=== PATIENT | female | born 1985 | race Caucasian/White ===

== ENCOUNTER 2017-11-04 12:14 | Inpatient (IN) | payer OTHER ==
[2017-11-04] VITALS (20 sets, daily range): BP systolic 11–126; BP diastolic 51–73; PULSE 100–141; TEMP 97.7–97.8
[~2017-11-04] VITALS: Ht 162.6 cm; Wt 73.6 kg
[~2017-11-04 12:14] MED LIST: IBU600 MG PO; PERCOCET 325 MG1 TA2 PO
[2017-11-04] MEDS ORDERED: PRENATAL1 TA7 PO (13:32)
[2017-11-04 17:10] LABS: MEAN CELL VOLUME 83 fl (80.0-100.0); MEAN CORPUSCULAR HGB CONC 34 g/dl (33.0-37.0); MEAN PLATELET VOLUME 9.9 fl (7.4-10.4); PLATELET COUNT 231 K/mm3 (130-400); RED BLOOD COUNT 3.53 M/mm3 (4.10-5.30); REDCELL DISTRIBUTION WIDTH-CV 13.4 % (11.5-14.5)
[2017-11-04 17:13] LABS: HEMATOCRIT 29.4 % (37.0-47.0); MEAN CORPUSCULAR HEMOGLOBIN 28 pg (27.0-31.0)
[2017-11-04 17:34] LABS: BAND 33 % (0-10); EOSINOPHIL 1 % (0-4); LYMPHOCYTE 17 % (20.0-51.0); METAMYELOCYTE 1 % (0-0); NEUTROPHILS 38 % (42.0-75.2); PLATELET ESTIMATE NORMAL (NORMAL)
[2017-11-04 17:35] LABS: ROULEAUX 1+
[2017-11-04 17:39] LABS: ALBUMIN 3.1 gm/dL (3.5-5.0); BILIRUBIN,TOTAL 0.1 mg/dL (0.0-1.0); CALCIUM 8.9 mg/dL (8.4-10.2); CREATININE, serum 0.38 mg/dL (0.52-1.25); POTASSIUM 3.6 mmol/L (3.4-5.0); TOTAL PROTEIN 6.7 gm/dL (6.4-8.2)
[2017-11-04 17:50] LABS: THYROID STIMULATING HORMONE 0.907 uIU/mL (0.465-4.680)
[2017-11-05] VITALS (40 sets, daily range): BP systolic 71–109; BP diastolic 40–95; PULSE 69–129; TEMP 97.7–100
[2017-11-05] MEDS ORDERED: MOTRIN 800800 MG/TAB PO (08:31)
[2017-11-05] MEDS ORDERED: PERCOCET 325 MG1 TA2 PO (08:31)
[2017-11-06 04:00] VITALS: BP 81/55; PULSE 83; TEMP 97.4
[2017-11-06 05:23] LABS: RPR (VDRL) Non-reactive (())
[2017-11-06 09:00] VITALS: BP 96/54; PULSE 79; TEMP 97.9
[2017-11-06 09:34] LABS: HEMATOCRIT 28.1 % (37.0-47.0); HEMOGLOBIN 9.4 g/dl (12.5-16.0)
[2017-11-07 08:13] LABS: PT G20210A MUTATION B Negative (Negative)
== END 2017-11-06 15:10 | disposition home or self-care (01) | DRG 775 ==
LOC: LDRO 12:14 → OB 17:01 → LDR 17:01 → OB 11-05 21:20
PROVIDERS: Obstetrics & Gynecology
PROC: 10E0XZZ Delivery of Products of Conception, External Approach (ICD-10-PCS; principal; 2017-11-04)
PROC: 3E0P7VZ Introduction of Hormone into Female Reproductive, Via Natural or Artificial Opening (ICD-10-PCS; 2017-11-04)
PROC: 0HQ9XZZ Repair Perineum Skin, External Approach (ICD-10-PCS; 2017-11-04)
PROC: 10907ZC Drainage of Amniotic Fluid, Therapeutic from Products of Conception, Via Natural or Artificial Opening (ICD-10-PCS; 2017-11-04)
DX: O36.4XX0 Maternal care for intrauterine death, not applicable or unspecified (principal); Z3A.30 30 weeks gestation of pregnancy; Z37.1 Single stillbirth; O70.0 First degree perineal laceration during delivery; O69.1XX0 Labor and delivery complicated by cord around neck, with compression, not applicable or unspecified; O62.2 Other uterine inertia
CPT/HCPCS: J0690; J2210; J2590; J2795; J7120

== ENCOUNTER 2018-07-05 22:46 | Emergency (ER) | payer OTHER ==
[~2018-07-05] VITALS: Ht 160 cm; Wt 70.9 kg
[~2018-07-05 22:46] MED LIST changes: +MOTRIN 800800 MG/TAB PO; +PRENATAL1 TA7 PO
[2018-07-05 22:53] VITALS: TEMP 97.9
[2018-07-05] MEDS ORDERED: PRENATAL PO (23:38)
[2018-07-05 23:42] LABS: COLLECTION METHOD CLEAN CATCH
[2018-07-05 23:48] LABS: PH 7 (5-8); SQUAMOUS EPITHELIAL 0-2 /hpf; URINE APPEARANCE Clear; URINE BACTERIA None Seen /hpf; URINE BILIRUBIN Negative (NEGATIVE); URINE BLOOD Negative (NEGATIVE); URINE COLOR Straw; URINE GLUCOSE Negative (NEGATIVE); URINE KETONE Negative (NEGATIVE); URINE LEUKOCYTE ESTERASE Negative (NEGATIVE); URINE NITRATE Negative (NEGATIVE); URINE PROTEIN(semi-quant) Negative (NEGATIVE); URINE RBC None Seen /hpf; URINE UROBILINOGEN Negative (NEGATIVE)
[2018-07-06 00:35] VITALS: BP 113/72; PULSE 81
== END 2018-07-06 00:38 | disposition home or self-care (01) ==
LOC: COL.ER 22:46
PROVIDERS: Nurse Practitioner
DX: O26.891 Other specified pregnancy related conditions, first trimester (principal); R10.2 Pelvic and perineal pain; Z3A.12 12 weeks gestation of pregnancy; Z87.59 Personal history of other complications of pregnancy, childbirth and the puerperium; Z90.721 Acquired absence of ovaries, unilateral

== ENCOUNTER → 2018-11-06 | Outpatient (CLI) | payer OTHER ==
[~2018-11-06] MED LIST changes: +PRENATAL PO
== END ==
LOC: SUN.DIA
DX: O24.419 Gestational diabetes mellitus in pregnancy, unspecified control (principal)
CPT/HCPCS: G0108

== ENCOUNTER → 2018-11-12 | Outpatient (CLI) | payer OTHER ==
[~2018-11-12] MED LIST changes: +FERROUSAL325 MG PO
== END ==
LOC: SUN.DIA 11:15
DX: O24.419 Gestational diabetes mellitus in pregnancy, unspecified control (principal); Z3A.23 23 weeks gestation of pregnancy
CPT/HCPCS: G0108

== ENCOUNTER 2018-11-13 22:34 | Inpatient (IN) | payer OTHER ==
[~2018-11-13] VITALS: Ht 160 cm; Wt 78.6 kg
[~2018-11-13 22:34] MED LIST changes: -FERROUSAL325 MG PO
--- NOTE | 2018-11-13 22:45 | NUR ---
G2L0 at 31 weeks and 4 days arrives to unit with complaint of decreased movement. Pt states she usually feels baby move 30-40 times while doing kick counts and only felt 8 tonight. Pt with a history of 30 week IUFD. Pt denies contractions, vaginal bleeding, or LOF. Pt oriented to room, call light within reach, bed in low and locked position. EFM and toco explained and applied. Plan of care discussed with patient. Pt verbalized understanding, all questions answered. Vital signs obtained. Admission assessment started.
[2018-11-13 23:00] VITALS: BP 110/70; PULSE 88; TEMP 98.1
[2018-11-13] MEDS ORDERED: FERROUSAL325 MG PO (23:04)
--- NOTE | 2018-11-13 23:30 | NUR ---
Category 1 heart rate tracing obtained. Pt reports feeling baby move. Pt is reassured of well being. Dr. Villa notified, see physician notification.
--- NOTE | 2018-11-13 23:40 | NUR ---
Pt discharged home at this time. Reviewed discharge instructions and return precautions, pt verbalized understanding. Pt seen ambulating off unit with spouse.
== END 2018-11-13 23:40 | disposition home or self-care (01) | DRG 833 ==
LOC: LDRO 22:34 → LDR 22:54
PROVIDERS: ADMIT Obstetrics & Gynecology
DX: O36.8130 Decreased fetal movements, third trimester, not applicable or unspecified (principal); Z3A.31 31 weeks gestation of pregnancy; O09.523 Supervision of elderly multigravida, third trimester; O24.419 Gestational diabetes mellitus in pregnancy, unspecified control

== ENCOUNTER → 2018-12-11 | Outpatient (CLI) | payer OTHER ==
[~2018-12-11] MED LIST changes: +FERROUSAL325 MG PO
== END ==
LOC: SUN.DIA 10:06
DX: O24.419 Gestational diabetes mellitus in pregnancy, unspecified control (principal); Z3A.38 38 weeks gestation of pregnancy
CPT/HCPCS: G0108

== ENCOUNTER 2019-01-06 14:47 | Inpatient (IN) | payer OTHER ==
[~2019-01-06] VITALS: Ht 162.6 cm; Wt 83.2 kg
[2019-01-06 19:10] VITALS: BP 110/68; PULSE 78; TEMP 97.9
--- NOTE | 2019-01-06 21:25 | NUR ---
G2L0. 39-2. Ambulatory to LDR 5 with spouse for scheduled induction. Clean gown on. EFM and TOCO explained and applied. Pt denies having contractions, LOF or vaginal bleeding. Reports good movement. Pt appears very anxious for induction. IV started and labs obtained via IV site. LR bolus infusing without difficulties. Consents and assessment completed. Plan of care explained to pt and who verbalize understanding. Questions answered. Call light within reach. 2220: Pt off monitors to use restroom before cytotec placement. Pt states "she would like 15 minutes in bathroom please." Plan of care explained to pt and .
[2019-01-06] MEDS ORDERED: IRON 27 MG PO (22:04)
[2019-01-06 22:24] LABS: HEMATOCRIT 34.8 % (37.0-47.0); HEMOGLOBIN 11.5 g/dl (12.5-16.0); MEAN CELL VOLUME 83 fl (80.0-100.0); MEAN CORPUSCULAR HEMOGLOBIN 27 pg (27.0-31.0); MEAN CORPUSCULAR HGB CONC 33 g/dl (33.0-37.0); MEAN PLATELET VOLUME 10.8 fl (7.4-10.4); PLATELET COUNT 226 K/mm3 (130-400); REDCELL DISTRIBUTION WIDTH-CV 13.4 % (11.5-14.5)
[2019-01-06 22:30] VITALS: BP 89/55; PULSE 81
--- NOTE | 2019-01-06 22:50 | NUR ---
Pt returned from bathroom. SVE FT/50/-3, pt did not tolerate SVE well. Encouraged pt to relax and breathing techniques. Cytotec placed per protocol. Pt repositioned to LL and pericare provided. Plan of care explained to pt and who verbalize understanding.
[2019-01-06 22:53] LABS: BAND 10 % (0-10); BASOPHIL 2 % (0-2); EOSINOPHIL 2 % (0-4); LYMPHOCYTE 25 % (20.0-51.0); METAMYELOCYTE 1 % (0-0); NEUTROPHILS 50 % (42.0-75.2); PLATELET ESTIMATE NORMAL (NORMAL)
[2019-01-06 23:00] VITALS: BP 122/54; PULSE 75
[2019-01-06 23:30] VITALS: BP 86/49; PULSE 71
[2019-01-07] VITALS (46 sets, daily range): BP systolic 80–129; BP diastolic 45–79; PULSE 62–107; TEMP 97.6–99
--- NOTE | 2019-01-07 03:00 | NUR ---
Pt called out crying stating she was hurting. SVE 280/-3 per Carmelita SOTO. Plan of care explained to pt. Pt states she does not want an epidural at this time. 0318: Pt called out stating she would like an epidural at this time. LR bolus and pen G started at this time. Pt requesting to use restroom and monitors removed. HA Torres notified of epidural. [id number]: Pt sitting on EOB. Difficulty tracing FHR strip. RN remains at bedside adjusting monitors. 0351: Brian at bedside for epidural placement. Difficulty tracing FHR due to maternal position. Pulse ox applied and tracing. 0402: Test dose administered by HA Torres. See anesthesia records. 0408: Pt assisted to WL position per request. Difficulty getting BP due to maternal shaking. Multiple attmepts completed and Brian BONNER at bedside assessing pt. 0438: BP noted 88/48 on portable dynamap. FHR with spontaneous late decel. Ephedrine 10mgs administered at this time. 0500: Moreno inserted without difficulties. SVE 4/75/-2. Pt repositioned to WL and instructed on getting sleep. Pt very tired at this time. Call light within reach..
--- NOTE | 2019-01-07 11:33 | NUR ---
1133- PATIENT DELIVERED VIABLE MALE BY DR GODWIN AT THIS TIME. BABY TO MOTHERS CHEST. FATHER OF BABY CUT CORD. BABY STIMULATED ON MOTHERS CHEST. PLACENTA DELIVERED AT 1139. PITOCIN STARTED AT 333 MLS/ HR. FUNDAL MASSAGE PROVIDED. DR GODWIN REPAIRED 3 DEGREE LACERATION.
[2019-01-08 05:00] VITALS: BP 101/56; PULSE 96; TEMP 98.6
[2019-01-08 07:43] LABS: HEMATOCRIT 27.1 % (37.0-47.0)
[2019-01-08 07:50] VITALS: BP 98/56; PULSE 81; TEMP 98.2
[2019-01-08] MEDS ORDERED: IBU600 MG PO (09:23)
--- NOTE | 2019-01-08 10:23 | NUR ---
Initial visit; Parents thanked for offering congratulations for the of their son. thanked family for choosing [facility].
[2019-01-08 17:45] VITALS: BP 105/67; PULSE 105; TEMP 98.3
[2019-01-08 20:00] VITALS: BP 119/67; PULSE 92; TEMP 97.7
[2019-01-09 09:10] VITALS: BP 119/74; PULSE 68; TEMP 97.8
--- NOTE | 2019-01-09 13:45 | NUR ---
Discharge instructions given. Pt verbalizes understanding. Bands matched and hugs tag removed.
== END 2019-01-09 13:45 | disposition home or self-care (01) | DRG 768 ==
LOC: LDRO 14:47 → EDSTATUS 14:48 → OB 14:49 → LDR 21:17 → OB 21:17
PROVIDERS: ADMIT Obstetrics & Gynecology
PROC: 0DQR0ZZ Repair Anal Sphincter, Open Approach (ICD-10-PCS; principal; 2019-01-07)
PROC: 10E0XZZ Delivery of Products of Conception, External Approach (ICD-10-PCS; principal; 2019-01-07)
DX: O24.420 Gestational diabetes mellitus in childbirth, diet controlled (principal); Z37.0 Single live birth; O98.813 Other maternal infectious and parasitic diseases complicating pregnancy, third trimester; O70.20 Third degree perineal laceration during delivery, unspecified; Z3A.39 39 weeks gestation of pregnancy; B95.1 Streptococcus, group B, as the cause of diseases classified elsewhere; O90.81 Anemia of the puerperium
CPT/HCPCS: J2540; J2590; J7120